=== PATIENT | male | born 1975 | race Caucasian/White ===

== ENCOUNTER 2018-09-05 00:30 | Inpatient (IN) | payer BC ==
[~2018-09-05] VITALS: Ht 177.8 cm; Wt 56.2 kg
--- NOTE | 2018-09-05 00:35 | NUR ---
PT BIBRA. COMP OF HAVING "SHORTNESS OF BREATH AT HOME, CANT CATCH MY BREATH" -N/V -DIZZINESS. AOX4. MD AT BEDSIDE
[2018-09-05] MEDS ORDERED: Magnesium 1GM/D5W 100ML PREMIX 200 ML IV ONE ×2 (00:41→00:47)
[2018-09-05] MEDS ORDERED: ALBUTEROL FS 2.5 MG/3 ML VIAL.NEB ONE (00:46)
[2018-09-05] MEDS ORDERED: IPRATROPIUM NEB FS 0.5 MG/2.5 ML AMPUL.NEB ONE (00:46)
[2018-09-05] MEDS ORDERED: methylPREDNISolone SOD SUCC 125 MG/2ML VIAL ONE (00:47)
[2018-09-05] MEDS ORDERED: ALBUTEROL FS 2.5 MG/3 ML VIAL.NEB CONTNEB ONE ×2 (01:00→06:30)
[2018-09-05] MEDS ORDERED: IPRATROPIUM NEB FS 0.5 MG/2.5 ML AMPUL.NEB NEB ONE (01:00)
[2018-09-05] MEDS ORDERED: methylPREDNISolone SOD SUCC 125 MG/2ML VIAL IV ONE (01:00)
[2018-09-05 03:55] LABS: BASOPHILS % (AUTO) 0.2 % (0.0-2.0); EOSINOPHILS % (AUTO) 0.1 % (0.0-6.0); HEMATOCRIT 53 % (39-51); HEMOGLOBIN 18.1 g/dL (13.5-17.5); LYMPHOCYTES # (AUTO) 0.5 /CMM (0.8-4.8); LYMPHOCYTES % (AUTO) 3.2 % (20.0-44.0); MEAN CORPUSCULAR HGB CONC 34 g/dl (31.0-36.0); MEAN CORPUSCULAR VOLUME 95 fL (80-96); MONOCYTES # (AUTO) 0.2 /CMM (0.1-1.30); MONOCYTES % (AUTO) 1.1 % (2.0-12.0); NEUTROPHILS # (AUTO) 13.7 /CMM (1.8-8.9); NEUTROPHILS % (AUTO) 95.4 % (43.0-81.0); PLATELET COUNT (AUTO) 222 /CMM (150-450); RED BLOOD CELL COUNT(AUTO) 5.63 MIL/uL (4.5-6.0); WHITE BLOOD COUNT (AUTO) 14.4 K/uL (4.3-11.0)
[2018-09-05] MEDS ORDERED: ZOLPIDEM TARTRATE 5 MG TABLET PO PRN (04:30)
[2018-09-05] MEDS ORDERED: MAG HYDROX/AL HYDROX/SIMETH 30 ML UDC PO PRN (04:30)
[2018-09-05] MEDS ORDERED: IPRATROPIUM NEB FS 0.5 MG/2.5 ML AMPUL.NEB NEB PRN ×2 (04:30→05:00)
[2018-09-05] MEDS ORDERED: HYDROCODONE/APAP 5/325MG 1 EACH TABLET PO PRN (04:30)
[2018-09-05] MEDS ORDERED: ALBUTEROL FS 2.5 MG/3 ML VIAL.NEB NEB PRN (04:30)
[2018-09-05] MEDS ORDERED: Z GUARD REMEDY 2 OZ OINT TP PRN (04:30)
[2018-09-05] MEDS ORDERED: ONDANSETRON HCL/PF 4 MG/2 ML VIAL IVP PRN (04:30)
[2018-09-05] MEDS ORDERED: ACETAMINOPHEN 325 MG TABLET PO PRN (04:30)
[2018-09-05] MEDS ORDERED: MAGNESIUM HYDROXIDE 30 ML UDC PO PRN (04:30)
[2018-09-05 04:31] LABS: CALCIUM, SERUM 9.3 mg/dL (8.5-10.1); CREATININE 1.3 mg/dL (0.6-1.3); POTASSIUM 3.7 mmol/L (3.5-5.1)
--- NOTE | 2018-09-05 04:38 | NUR ---
REPORT GIVEN TO SEKOU JIMENEZ. NEW ROOM [id number]
[2018-09-05 04:47] LABS: MAGNESIUM 2.7 mg/dL (1.8-2.4); PHOSPHORUS 3.1 mg/dL (2.5-4.9)
[2018-09-05 05:00] VITALS: BP 123/77
[2018-09-05] MEDS ORDERED: ALBUTEROL FS 2.5 MG/0.5 ML VIAL.NEB NEB PRN (05:00)
--- NOTE | 2018-09-05 05:00 | NUR ---
MERCHANDISE ASSOCIATE OPENING NOTES: RECEIVED PT ON 8LPM VIA SIMPLE MASK. PT IS COMPLAINING OF SOB AND APPEARS TO BE TACHYPNEIC. ER NURSE SAID RT IS ON HIS WAY AND WILL GIVE THE PRN BREATHING TX. PT IS A/OX4. PT HAS IV ON R AC #20G AND IS PATENT AND INTACT. CURRENTLY H/L. PT TO BE PLACED ON TELE BOX. BED KEPT IN LOW, LOCKED POSITION, AND SIDE RAILS X 2UP. WILL CONTINUE TO MONITOR PT.
--- NOTE | 2018-09-05 05:44 | NUR ---
NATUROPATHIC ONCOLOGY PROVIDER NOTES: ALEMITE OPERATOR LORENA AWARE THAT PT IS ON 8LPM VIA SIMPLE MASK AND THAT HE WAS RUNNING ON [address]. ALSO, OK TO CHANGE PRN BREATHING TX TO SCHEDULED TXS.
--- NOTE | 2018-09-05 05:55 | NUR ---
FURNACE MECHANIC NOTES: SPOKE WITH LENS CEMENTER SUNSHINE CARRILLO. DC THE PRN BREATHING TXS AND KEEP THE SCHEDULED. ALSO, ORDER A ONE TIME CONTINUOUS ALBUTEROL NEB 10MG 1 X ORDER.
[2018-09-05] MEDS ORDERED: ALBUTEROL FS 2.5 MG/3 ML VIAL.NEB NEB ONE (06:30)
--- NOTE | 2018-09-05 06:53 | NUR ---
CAPACITY PLANNING ENGINEER CLOSING NOTES: ALL NEEDS WERE ATTENDED AND ANTICIPATED FOR. PT RESTING IN BED COMFORTABLY IN HIGH AGUIRRE'S POSITION. PT CURRENTLY ON ALBUTEROL 10MG NEB ONE TIME TREATMENT. PT HAS IV AND IS PATENT AND INTACT. CURRENTLY H/L. BED KEPT IN LOW, LOCKED POSITION, AND SIDE RAILS X 2UP. PT ON TELE MONITOR AND READING SHOWS ST 117. WILL ENDORSE TO AM NURSE FOR ERI. Addendum: 09/05/18 at 0735 by TAO MCNEAL RN PT PLACED BACK ON 8LPM VIA SIMPLE MASK.
--- NOTE | 2018-09-05 07:20 | NUR ---
MS RN NOTES PATIENT IN BED ALERT ORIENTED X 4. NO ACUTE DISTRESS NOTED. BREATHING UNLABORED. DENIED ANY PAIN AT THIS TIME. IV ACCESS PATENT AND INTACT, NO REDNESS NO SWELLING NOTED. SAFETY MEASURES IN PLACE. CALL LIGHT WITHIN REACH. WILL CONTINUE TO MONITOR ACCORDINGLY.
[2018-09-05] MEDS: IPRATROPIUM NEB FS 0.5 MG/2.5 ML AMPUL.NEB NEB SCH ×5 (07:35→23:56)
[2018-09-05] MEDS: ALBUTEROL FS 2.5 MG/3 ML VIAL.NEB NEB SCH ×5 (07:35→23:56)
[2018-09-05 08:00] VITALS: BP 103/62
[2018-09-05] MEDS: methylPREDNISolone SOD SUCC 125 MG/2ML VIAL IV SCH ×2 (08:23→16:54)
[2018-09-05] MEDS: PANTOPRAZOLE 40 MG TABLET.DR PO SCH (08:23)
--- NOTE | 2018-09-05 09:05 | NUR ---
MS RN NOTES SEEN AND EVALUATED BY DR HARSHIL NUNN WITH NEW ORDERS MADE, NOTED AND CARRIED OUT.
--- NOTE | 2018-09-05 09:54 | NUR ---
MS RN NOTES SEEN AND EVALUATED BY DR ESSIE ALEXANDER WITH NEW ORDERS MADE, NOTED AND CARRIED OUT.
--- NOTE | 2018-09-05 10:34 | NUR ---
MS RN NOTES SEEN AND EVALUATED BY DR CHENG WITH NEW ORDERS MADE, NOTED AND CARRIED OUT.
[2018-09-05] MEDS: AZITHROMYCIN 250 MG TABLET PO SCH (11:14)
[2018-09-05 16:00] VITALS: BP 102/61
--- NOTE | 2018-09-05 19:00 | NUR ---
MS RN NOTES PATIENT IN BED ALERT ORIENTED X 4. NO ACUTE DISTRESS NOTED. BREATHING UNLABORED. DENIED ANY PAIN AT THIS TIME. IV ACCESS PATENT AND INTACT, NO REDNESS NO SWELLING NOTED. DUE MEDICATIONS GIVEN, NO ASE NOTED. NEEDS ATTENDED AND ANTICIPATED. SAFETY MEASURES IN PLACE. CALL LIGHT WITHIN REACH. ENDORSED TO NIGHT NURSE FOR CONTINUITY OF CARE.
--- NOTE | 2018-09-05 19:15 | NUR ---
MS ANANDA INITIAL NOTES PT SEEN IN BED AWAKE AND ALERT WATCHING TV AT THIS TIME. NO SIGNS OF ANY ACUTE DISTRESS NOTED, STILL WITH 02 AT 2 LITERS VIA NC. NO SOB NOTED. PT IS AWARE REGARDING HIS MEDICATION AND HE STATED HE MUCH FEEL BETTER AFTER ALL THE MEDS AND TREATMENT THAT HE GOT. KEPT HIM COMFORTABLE AT ALL TIMES. ENCOURAGE HIM ALSO TO USED THE CALL LIGHT IF HE NEEDS SOME HELP OR ASSISTANCE. WILL CONTINUE MONITORING.
[2018-09-05 20:00] VITALS: BP 99/53
[2018-09-05 20:47] VITALS: BP 99/53
--- NOTE | 2018-09-05 23:46 | NUR ---
MS ANANDA NOTES PT RESTING COMFORTABLY IN BED WITHOUT ANY ACUTE DISTRESS NOTED. KEPT HIM WARM AND COMFORTABLE AT ALL TIMES. WILL CONTINUE MONITORING. PLACE CALL LIGHT AT REACH.
[2018-09-06] MEDS: methylPREDNISolone SOD SUCC 125 MG/2ML VIAL IV SCH ×2 (01:24→08:30)
[2018-09-06] MEDS: ALBUTEROL FS 2.5 MG/3 ML VIAL.NEB NEB SCH ×3 (03:30→11:56)
[2018-09-06] MEDS: IPRATROPIUM NEB FS 0.5 MG/2.5 ML AMPUL.NEB NEB SCH ×3 (03:30→11:56)
[2018-09-06 07:25] LABS: BASOPHILS % (AUTO) 0.1 % (0.0-2.0); CALCIUM, SERUM 9.1 mg/dL (8.5-10.1); CREATININE 1.4 mg/dL (0.6-1.3); HEMATOCRIT 49 % (39-51); HEMOGLOBIN 16.6 g/dL (13.5-17.5); LYMPHOCYTES # (AUTO) 0.7 /CMM (0.8-4.8); LYMPHOCYTES % (AUTO) 3.9 % (20.0-44.0); MAGNESIUM 2.6 mg/dL (1.8-2.4); MEAN CORPUSCULAR HGB CONC 34 g/dl (31.0-36.0); MEAN CORPUSCULAR VOLUME 94 fL (80-96); MONOCYTES # (AUTO) 0.5 /CMM (0.1-1.30); MONOCYTES % (AUTO) 2.5 % (2.0-12.0); NEUTROPHILS # (AUTO) 17.4 /CMM (1.8-8.9); NEUTROPHILS % (AUTO) 93.5 % (43.0-81.0); PHOSPHORUS 4.3 mg/dL (2.5-4.9); PLATELET COUNT (AUTO) 212 /CMM (150-450); POTASSIUM 4.6 mmol/L (3.5-5.1); WHITE BLOOD COUNT (AUTO) 18.6 K/uL (4.3-11.0)
--- NOTE | 2018-09-06 07:28 | NUR ---
MS PRODUCTION TEAM LEADER CLOSING NOTES PT AWAKE AND ALERT WITH O2 AT 2 LITERS VIA NC. NO SOB NOTED AND NO SIGNS OF ACUTE DISTRESS NOTED. KEPT HIM WARM AND COMFORTABLE AT ALL TIMES. SLEPT WELL AND STABLE JENI THE NIGHT. PLACE CALL LIGHT AT REACH. ENDORSE.
--- NOTE | 2018-09-06 07:29 | NUR ---
MS RN OPENING NOTES RECEIVED PATIENT IN STABLE CONDITION. IN NO APPARENT DISTRESS. BEDSIDE RAILS ARE UPX2. BED IS LOCKED AND LOWERED. CALL LIGHT IS WITHIN REACH. IV LINE IS INTACT AND PATENT. WILL CONTINUE TO MONITOR PATIENT.
[2018-09-06 07:38] LABS: THYROID STIMULATING HORMONE 0.199 uIU/mL (0.358-3.74)
[2018-09-06 08:00] VITALS: BP 101/64
[2018-09-06] MEDS: PANTOPRAZOLE 40 MG TABLET.DR PO SCH (08:28)
[2018-09-06] MEDS: AZITHROMYCIN 250 MG TABLET PO SCH (09:48)
[2018-09-06] MEDS ORDERED: FLUT1DIS3 INH (12:49)
[2018-09-06] MEDS ORDERED: LEVO500T75 PO (12:49)
[2018-09-06] MEDS ORDERED: PRED20TA PO (12:49)
--- NOTE | 2018-09-06 14:06 | NUR ---
MS EARLY CHILDHOOD EDUCATOR AIDE NOTES PATIENT DISCHARGED IN STABLE CONDITION. IN NO APPARENT DISTRESS. ALL NEEDS WERE MET. IV LINE AND ID BAND WERE REMOVED. EXITCARE WAS SIGNED AND PROVIDED TO THE PATIENT. BELONGINGS WERE CHECKED AND PROVIDED TO THE PATIENT. PRESCRIPTIONS PROVIDED TO THE PATIENT. FOLLOW UP APPOINTMENT WITH DR CHENG IN 2 WEEKS PROVIDED TO THE PATIENT [employer] CARD. PATIENT ESCORTED OUT OF THE FACILITY VIA WHEELCHAIR Addendum: 09/06/18 at 1409 by DAKOTAH NOE RN BY RADHA CHISHOLM AND MOTHER.
[2018-09-09 20:07] LABS: *AREA 13 IGE,TOTAL 1890 IU/mL (0-100)
== END 2018-09-06 14:06 | disposition home or self-care (01) | DRG 203 ==
LOC: ER 00:33 → TELE 04:05 → MED 09:47
DX: J45.902 Unspecified asthma with status asthmaticus (principal); F17.200 Nicotine dependence, unspecified, uncomplicated; D72.829 Elevated white blood cell count, unspecified; D75.1 Secondary polycythemia; F17.210 Nicotine dependence, cigarettes, uncomplicated
CPT/HCPCS: 36415; 70220-TC; 71045-TC; 80048-TC; 80061-TC; 82785; 83735-TC; 84100-TC; 84443-TC; 85025-TC; 87081-TC; 87400; G0378; J2930; J3475